=== PATIENT | male | born 1955 | race Caucasian/White ===

== ENCOUNTER 2022-04-29 16:29 | Emergency (ER) | payer MEDICARE, SELFPAY ==
[2022-04-29 16:43] VITALS: BP 154/81; PULSE 70; RESP 16; TEMP 36.4; O2SAT 95; BMI 25.8
--- NOTE | 2022-04-29 17:08 | CRLHL7_ITS ---
For Patients: As a result of the Century Cures Act, medical imaging exams and procedure reports are released immediately into your electronic medical record. You may view this report before your referring provider. If you have questions, please contact your health care provider. INDICATION: Tinnitus. Nausea. TECHNIQUE: Multiple axial images were obtained through the brain without contrast. Sagittal and coronal re-formatted images were obtained. COMPARISON: None. FINDINGS: The ventricles and sulci are within normal limits for patient`s age. There is no mass effect or midline shift. There is no intracranial hemorrhage. The pulliam white matter differentiation is unremarkable. There is no skull fracture seen. The visualized portion of the sinuses and mastoid air cells are clear. IMPRESSION: No acute intracranial abnormality. Please note that all CT scans at this facility use dose modulation, iterative reconstruction, and/or weight-based dosing when appropriate to reduce radiation dose to as low as reasonably achievable. Dictated by Almas Montague MD @ 04/29/2022 5:51:34 PM (Electronically Signed)
--- NOTE | 2022-04-29 17:18 | ED.GENADULT ---
HPI - General Adult General Date Seen: 04/29/22 Chief complaint: Unspecified Complaint, Adult Stated complaint: Ringing in ears, anxious, loss of appetite Time Seen by Provider: 04/29/22 16:44 Source: patient History of Present Illness HPI narrative: Patient is a 66-year-old male who presents for evaluation of tinnitus, anxiety, difficulty sleeping which has been going on for about 2 weeks. He says he was seen at the [facility] last Sunday and prescribed amoxicillin for what he was told was an ear infection. He has been taking the amoxicillin, does not feel that the tinnitus is particularly improved. He has not had ear pain at any point. Denies fevers or headache. He does have a history of mild tenderness, and says he has had some hearing loss at baseline. He does not feel that his hearing is significantly different although it is a little bit more difficult here because the tinnitus is louder than what he is used to. Tinnitus seems a little bit worse on the right compared to the left, is generally constant although it waxes and wanes in terms of intensity. 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 He has good collateral circulation and says that he has never to his knowledge suffered a stroke. He denies any history of coronary artery disease, but does say his dad at age 48 of heart attack. In addition to the tenderness, he says that he has had significant decreased appetite over the past several days. He has been feeling more and more weak, although he denies any focal weakness. He also says he has been feeling significantly anxious, which is very unusual for him. He has a sister who is a physician, and he says that she told him he should come in to get his kidney and liver checked out. He has not had any chest pain or difficulty breathing. He denies any other neurologic symptoms. Denies tobacco use. He is not a significant drinker. Here with his . Related Data Home Medications Medication Instructions Recorded Confirmed atorvastatin 20 mg tablet 20 mg PO DAILY 04/29/22 04/29/22 lisinopril 10 mg tablet 10 mg PO DAILY 04/29/22 04/29/22 Previous Rx's Medication Instructions Recorded trazodone 50 mg tablet 50 mg PO HS #10 tabs 04/29/22 Allergies Allergy/AdvReac Type Severity Reaction Status Date / Time No Known Drug Allergies Allergy Verified 04/29/22 16:43 Review of Systems Status of ROS: Reports: 10 or more systems reviewed and unremarkable except as noted in History and below [facility] Social History Smoking Status: Never smoker How often do you have a drink containing alcohol: never AUDIT-C Alcohol total score: 0 Non-prescribed substance use: denies use Exam Narrative: Exam Narrative: Vital signs as noted above. In general, an alert, well-appearing patient. Head: Normocephalic, atraumatic. Eyes: Pupils are equal reactive. Extraocular movements are full. No nystagmus. Conjunctivae are normal. ENT: Mucous membranes are moist. Throat is normal. Tongue is midline. I do not see significant erythema of either tympanic membrane, although there does appear to be some debris on the left which slightly inhibits my ability to see the tympanic membrane. Landmarks are seen on the right. Neck: Supple without lymphadenopathy. No adenopathy. Heart: Regular rate and rhythm. No murmur or rub. Lungs: Clear bilaterally. No increased work of breathing, crackles or wheezes. Abdomen: Soft and nontender. No organomegaly. Extremities: Well perfused. No edema. No calf tenderness. Pulses intact. Neurologic: Patient is alert and oriented to person and place. Speech is fluent. Face is symmetric. Moves all extremities equally. Affect: Normal. Skin: Warm and dry. Well perfused. Const: Vital Signs, click to edit/add: Vital Signs - 24 hr 04/29/22 16:43 04/29/22 17:37 Temperature 97.5 F L Pulse Rate [Right Pulse Oximeter] 70 69 Respiratory Rate 16 12 Blood Pressure [Ri ght Upper Arm] 154/81 H 143/74 H Pulse Oximetry 95 Oxygen Delivery Me thod Room Air Room Air Documenting provider has reviewed patient's vital signs: yes Course Course Hospital Course: EKG by my review showed LVH with repolarization changes. No previous EKGs available for review. He did have Q-waves in leads 3 and half, Q-waves in V2, possibly V3. No acute ST segment changes a aside from those that are attributable to LVH. Troponin was checked and was 0.02. Other labs are entirely normal. I checked a CBC, basic metabolic panel, LFTs, TSH, CRP and sed rate. I also did a head CT which by my review did not show any abnormalities. The final radiology report was likewise negative. Overall, I think his symptoms are likely due to a combination of tinnitus, anxiety, insomnia. I have reassured him I am not seeing any evidence of anything else medically wrong at this time. I do think he might benefit from or quality sleep, so I have suggested we try something to help him in the short term with sleep, and hopefully the tinnitus will resolve here in the near future and he will be able to sleep better thereafter. He was concerned about his blood pressure. He has been taking extra doses of his blood pressure in the past couple of days because he could ?feel that his blood pressure was high?. He does not have any kind of we did check his blood pressure at home. I have thus with him that he simply has no way of knowing whether his blood pressure is high by feel, so I have asked him to discontinue that practice of taking extra blood pressure medicine based on how he feels. I would like him to follow up with his primary doctor in the near future, but they are scheduled to leave tomorrow to visit their son in [place]. He can follow up with his primary doctor when he returns home. I am going to give him trazodone to try for sleep. We discussed that typically we try and limit that to a short-term solution. He has been taking Benadryl however, and I think using something else it is a better option than continuing to take Benadryl. With regard to the tinnitus, he is not describing any other symptoms which are worrisome. I do think it would be a good idea to see ENT if the tinnitus is not resolving by the time he returns from [place]. Vital Signs Vital signs: Initial Vital Signs Temperature 97.5 F L 04/29/22 16:43 Temperature Source Temporal Artery Scan 04/29/22 16:43 Pulse Rate 70 04/29/22 16:43 Respiratory Rate 16 04/29/22 16:43 Blood Pressure 154/81 H 04/29/22 16:43 Blood Pressure Mean 105 04/29/22 16:43 Blood Pressure Position Sitting 04/29/22 16:43 Pulse Oximetry 95 04/29/22 16:43 Oxygen Delivery Method 04/29/22 16:43 Vital Signs Temperature 97.5 F L 04/29/22 16:43 Pulse Rate 70 04/29/22 16:43 Respiratory Rate 16 04/29/22 16:43 Blood Pressure 154/81 H 04/29/22 16:43 Pulse Oximetry 95 04/29/22 16:43 Oxygen Delivery Method 04/29/22 16:43 Temperature 97.5 F L 04/29/22 16:43 Pulse Rate 69 04/29/22 17:37 Respiratory Rate 12 04/29/22 17:37 Blood Pressure 143/74 H 04/29/22 17:37 Pulse Oximetry 95 04/29/22 16:43 Oxygen Delivery Method 04/29/22 17:37 Medical Decision Making Lab Data Labs: Lab Results 04/29/22 04/29/22 04/29/22 Range/Units 17:18 17:18 17:18 WBC 5.28 (4.50-11.00) K/uL RBC 4.39 (4.30-5.90) m/uL Hgb 13.0 L (13.5-17.5) gm/dL Hct 39.1 (37.0-53.0) % MCV 89 (80-100) fL MCH 30 (26-34) pg MCHC 33 (32-36) gm/dL RDW Coeff of Zuhair 13.0 (11.5-15.5) % Plt Count 265 (140-440) K/uL Neut % (Auto) 53.8 (42.0-72.0) % Lymph % (Auto) 35.2 (20-44) % Cottle % (Auto) 9.1 (0.0-11.0) % Eos % (Auto) 0.9 (0.0-7.0) % Baso % (Auto) 0.8 (0.0-3.0) % Neut # (Auto) 2.84 (1.7-7.0) K/uL Lymph # (Auto) 1.86 (0.90-2.90) K/uL Cottle # (Auto) 0.50 (0.00-0.90) K/UL Eos # (Auto) 0.05 (0.00-0.50) K/uL Baso # (Auto) 0.04 (0.00-0.30) K/uL Abs Immat Gran (auto) 0.01 (0.00-0.30) K/uL ESR 12 (2-15) mm/hr Sodium 140 (135-149) mmol/L Potassium 4.0 (3.6-5.1) mmol/L Chloride 107 (96-114) mmol/L Carbon Dioxide 25 (20-32) mmol/L BUN 14 (7-30) mg/dL Creatinine 1.0 (0.5-1.5) mg/dL Estimated Creat Clear 77.39 Estimated GFR 83 ml/min Glucose 94 (60-115) mg/dL Calcium 8.8 (8.4-10.6) mg/dL Total Bilirubin 0.4 (0.1-1.5) mg/dL Direct Bilirubin 0.2 (0.0-0.5) mg/dL AST 45 H (12-35) U/L ALT 28 (4-50) U/L Alkaline Phosphatase 88 (40-150) U/L Troponin I (0.01-0.04) ng/mL C-Reactive Protein < 0.5 L (0.5-1.0) mg/dL Total Protein 7.9 (6.0-8.3) g/dL Albumin 4.5 (3.3-5.0) g/dL TSH (0.270-4.200) uIU/mL 04/29/22 04/29/22 Range/Units 17:18 17:18 WBC (4.50-11.00) K/uL RBC (4.30-5.90) m/uL Hgb (13.5-17.5) gm/dL Hct (37.0-53.0) % MCV (80-100) fL MCH (26-34) pg MCHC (32-36) gm/dL RDW Coeff of Zuhair (11.5-15.5) % Plt Count (140-440) K/uL Neut % (Auto) (42.0-72.0) % Lymph % (Auto) (20-44) % Cottle % (Auto) (0.0-11.0) % Eos % (Auto) (0.0-7.0) % Baso % (Auto) (0.0-3.0) % Neut # (Auto) (1.7-7.0) K/uL Lymph # (Auto) (0.90-2.90) K/uL Cottle # (Auto) (0.00-0.90) K/UL Eos # (Auto) (0.00-0.50) K/uL Baso # (Auto) (0.00-0.30) K/uL Abs Immat Gran (auto) (0.00-0.30) K/uL ESR (2-15) mm/hr Sodium (135-149) mmol/L Potassium (3.6-5.1) mmol/L Chloride (96-114) mmol/L Carbon Dioxide (20-32) mmol/L BUN (7-30) mg/dL Creatinine (0.5-1.5) mg/dL Estimated Creat Clear Estimated GFR ml/min Glucose (60-115) mg/dL Calcium (8.4-10.6) mg/dL Total Bilirubin (0.1-1.5) mg/dL Direct Bilirubin (0.0-0.5) mg/dL AST (12-35) U/L ALT (4-50) U/L Alkaline Phosphatase (40-150) U/L Troponin I 0.02 (0.01-0.04) ng/mL C-Reactive Protein (0.5-1.0) mg/dL Total Protein (6.0-8.3) g/dL Albumin (3.3-5.0) g/dL TSH 1.140 (0.270-4.200) uIU/mL Discharge Plan Discharge Clinical Impression: Insomnia, Tinnitus Patient Disposition: Home, Self-Care Condition: Stable Instructions: Insomnia (ED), Tinnitus (ED) Additional Instructions: Primary care follow-up when you return from her trip. ENT follow-up if your tinnitus is not improving. Trazodone as prescribed to help with sleep. Prescriptions: New trazodone 50 mg tablet 50 mg PO HS Qty: 10 3RF No Action lisinopril 10 mg tablet 10 mg PO DAILY atorvastatin 20 mg tablet 20 mg PO DAILY Follow Up/Referrals: Provider,Not a Local [Primary Care Provider] - Stand Alone Forms: [place] [facility] Info Instructions
[2022-04-29 17:37] VITALS: BP 143/74; PULSE 69; RESP 12
[2022-04-29 17:37] LABS: Basophils Absolute Auto 0.04 K/uL (0.00-0.30); Basophils Percent Auto 0.8 % (0.0-3.0); Eosinophils Absolute Auto 0.05 K/uL (0.00-0.50); Eosinophils Percent Auto 0.9 % (0.0-7.0); Hematocrit 39.1 % (37.0-53.0); Immature Granulocytes Abs Auto 0.01 K/uL (0.00-0.30); Lymphocytes Absolute Auto 1.86 K/uL (0.90-2.90); Lymphocytes Percent Auto 35.2 % (20-44); Mean Corpuscular HGB Conc 33 gm/dL (32-36); Mean Corpuscular Hemoglobin 30 pg (26-34); Mean Corpuscular Volume 89 fL (80-100); Monocytes Percent Auto 9.1 % (0.0-11.0); Neutrophils Absolute Auto 2.84 K/uL (1.7-7.0); Neutrophils Percent Auto 53.8 % (42.0-72.0); Platelet Count* 265 K/uL (140-440); Red Blood Count 4.39 m/uL (4.30-5.90); White Blood Count* 5.28 K/uL (4.50-11.00)
[2022-04-29 17:39] LABS: Slide Review Reflex No
[2022-04-29 17:46] LABS: Albumin* 4.5 g/dL (3.3-5.0); Chloride* 107 mmol/L (96-114); Sodium* 140 mmol/L (135-149)
[2022-04-29 17:49] LABS: Bilirubin Direct* 0.2 mg/dL (0.0-0.5); Bilirubin Total* 0.4 mg/dL (0.1-1.5); Carbon Dioxide* 25 mmol/L (20-32); Est. Creatinine Clearance* 77.39; Estimated Glomerular Filt Rate 83 ml/min; Total Protein* 7.9 g/dL (6.0-8.3)
[2022-04-29 17:50] LABS: Alanine Aminotransferase* 28 U/L (4-50); Alkaline Phosphatase* 88 U/L (40-150); Aspartate Amino Transferase* 45 U/L (12-35); Blood Urea Nitrogen* 14 mg/dL (7-30); Calcium* 8.8 mg/dL (8.4-10.6); Glucose* 94 mg/dL (60-115)
[2022-04-29 17:57] LABS: C Reactive Protein* < 0.5 mg/dL (0.5-1.0)
[2022-04-29 18:02] LABS: Troponin I* 0.02 ng/mL (0.01-0.04)
[2022-04-29 18:22] LABS: Erythrocyte SedimentationRate* 12 mm/hr (2-15)
[2022-04-29] MEDS: TRAZODONE HCL 50 MG TABLET PO (19:06)
== END 2022-04-29 19:08 | disposition home or self-care (01) ==
PROVIDERS: Emergency Provider Emergency Medicine
DX: H93.19 Tinnitus, unspecified ear (principal); G47.00 Insomnia, unspecified; F41.9 Anxiety disorder, unspecified
CPT/HCPCS: 36415; 70450; 80048; 80076; 84443; 84484; 85025; 85651; 86140; 93005; 99284; A9270